=== PATIENT | male | born 1990 | race Caucasian/White ===

== ENCOUNTER → 2019-06-15 | Outpatient (CLI) | payer BC, OTHER ==
[~2019-06-15] MED LIST: ACHD5005 PO; CTLP20T PO
--- NOTE | 2019-06-15 16:41 | Diagnostic Imaging Report ---
INDICATION: Left scrotal pain. FINDINGS: Right testicle measures 4.5 cm and the left 4.5 cm. Small simple hydroceles are present. There does appear to be a small left-sided varicocele. Color Doppler blood flow to the testicles and epididymides normal. No evidence for torsion, orchitis, or epididymitis. No evidence for hematocele or pyocele. No testicular mass. IMPRESSION: No acute-appearing abnormality. Small simple hydroceles and a small left varicocele noted. Dictated by: Dictated on workstation # [id number]
== END ==
LOC: RAD 16:08
PROVIDERS: ATTEND Nurse Practitioner Family
DX: N43.3 Hydrocele, unspecified (principal); I86.1 Scrotal varices
CPT/HCPCS: 76870

== ENCOUNTER 2022-02-14 13:22 | Emergency (ER) | payer OTHER ==
[~2022-02-14] VITALS: Ht 180 cm; Wt 78.0 kg
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
[2022-02-14] MEDS ORDERED: oxyCODONE/APAP 5/325MG (PERCOCET 5) TABLET PO ONE (13:45)
[2022-02-14] MEDS ORDERED: TETANUS,DIPTH,PERTUSS P/F (BOOSTRIX) 0.5 ML VIAL IM ONE (13:45)
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
[2022-02-14] MEDS ORDERED: METH-732 PO (14:19)
[2022-02-14] MEDS ORDERED: NAPR-1071 PO (14:19)
[2022-02-14 14:28] VITALS: BP 146/80
== END 2022-02-14 14:27 | disposition home or self-care (01) ==
LOC: EDUNIT# 13:22 → ER 13:23
DX: S06.0X0A Concussion without loss of consciousness, initial encounter (principal); S01.01XA Laceration without foreign body of scalp, initial encounter; S30.811A Abrasion of abdominal wall, initial encounter; S80.211A Abrasion, right knee, initial encounter; S60.511A Abrasion of right hand, initial encounter; Z23 Encounter for immunization; R40.2410 Glasgow coma scale score 13-15, unspecified time; V29.9XXA Motorcycle rider (driver) (passenger) injured in unspecified traffic accident, initial encounter
CPT/HCPCS: 70450; 72125; 72131; 90715

== ENCOUNTER 2022-08-29 09:25 | Emergency (ER) | payer OTHER ==
[~2022-08-29] VITALS: Ht 180.3 cm; Wt 75.2 kg
[~2022-08-29 09:25] MED LIST changes: +METH-732 PO; +NAPR-1071 PO
[2022-08-29] MEDS ORDERED: NS IV 1000 ML 1,000 ML IV SCH (10:15)
[2022-08-29 10:38] LABS: BASOPHILS % (AUTO) 0 % (0-10); EOSINOPHILS # (AUTO) 0.1 10^3/uL (0.0-0.3); EOSINOPHILS % (AUTO) 1 % (0-10); HEMATOCRIT 43 % (40-54); HEMOGLOBIN 14.9 g/dL (13.3-17.7); LYMPHOCYTES # (AUTO) 1.2 10^3/uL (1.0-4.0); LYMPHOCYTES % (AUTO) 14 % (12-44); MEAN CORPUSCULAR HEMOGLOBIN 32 pg (25-34); MEAN CORPUSCULAR HGB CONC 35 g/dL (32-36); MEAN CORPUSCULAR VOLUME 92 fL (80-99); MEAN PLATELET VOLUME 9.6 fL (9.0-12.2); MONOCYTES # (AUTO) 1.1 10^3/uL (0.0-1.0); MONOCYTES % (AUTO) 12 % (0-12); NEUTROPHILS # (AUTO) 6.4 10^3/uL (1.8-7.8); NEUTROPHILS % (AUTO) 72 % (42-75); PLATELET COUNT 222 10^3/uL (130-400); WHITE BLOOD COUNT 8.8 10^3/uL (4.3-11.0)
[2022-08-29 10:51] LABS: ALBUMIN 4.3 GM/DL (3.2-4.5)
[2022-08-29 10:52] LABS: POTASSIUM 3.9 MMOL/L (3.6-5.0)
[2022-08-29 10:53] LABS: CALCIUM 9.2 MG/DL (8.5-10.1)
[2022-08-29 10:54] LABS: TOTAL PROTEIN 7.5 GM/DL (6.4-8.2)
[2022-08-29 10:56] LABS: BILIRUBIN,TOTAL 0.3 MG/DL (0.1-1.0)
[2022-08-29 10:58] LABS: CREATININE SERUM 0.98 MG/DL (0.60-1.30)
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
[2022-08-29 12:08] VITALS: BP 118/72
== END 2022-08-29 12:08 | disposition home or self-care (01) ==
LOC: EDUNIT# 09:25 → ER 09:27
DX: K52.9 Noninfective gastroenteritis and colitis, unspecified (principal); Z28.311 Partially vaccinated for COVID-19
CPT/HCPCS: 36415; 80053; 85025; 87015; 87045; 87046; 87077; 87324; 87449; 87899